=== PATIENT | female | born 1960 | race Caucasian/White ===

== ENCOUNTER 2021-01-16 21:23 | Emergency (ER) | payer MEDICARE ==
[2021-01-16] MEDS ORDERED: ceFAZolin 1 GM Vial IM ONE (21:40)
[2021-01-16] MEDS ORDERED: Bacitracin Oint 28.35 GM Tube TOP STA (21:41)
[2021-01-16] MEDS ORDERED: Ibuprofen 600 MG Tab PO ONE (21:41)
--- NOTE | 2021-01-16 22:13 | EDM.PDOC ---
ED HPI GENERAL MEDICAL PROBLEM - General Chief Complaint: Lower Extremity Injury/Pain Stated Complaint: EDEMA IN FEET Time Seen by Provider: 01/16/21 21:28 - History of Present Illness INITIAL COMMENTS - FREE TEXT/NARRATIVE: HISTORY AND PHYSICAL: History of present illness: This is a 60-year-old female who presents to the ER today for further evaluation of pain and swelling to her bilateral lower feet. Patient reports that she was seen in [place] on Tuesday and was diagnosed with an infection to her feet and was given a prescription for Keflex as well as Neosporin ointment to place on her feet. Patient reports that she was given a shot of antibiotics and discharged with a prescription for the antibiotics however secondary to circumstances outside of her control she was unable to get the prescription for Keflex and the Neosporin filled. Patient reports that she was also given a tetanus shot at that time. Patient reports that she took a train from [place] to [facility] however she got off the train and [place] today. Patient reports that she was walking around a lot for the last couple days without any socks on which resulted in multiple abrasions to her foot and swelling to her foot. Patient reports that her foot is more swollen than usual and she was unable to put her shoe on. Patient denies any recent fevers, shakes, chills, nausea, vomiting, diarrhea, dysuria, frequency, urgency. Patient denies any chest pain or shortness of breath. Patient denies any abdominal pain or discomfort. Review of systems: As per history of present illness and below otherwise all systems reviewed and negative. Past medical history: As per history of present illness and as reviewed below otherwise noncontributory. Surgical history: As per history of present illness and as reviewed below otherwise no ncontributory. Social history: No reported history of drug or alcohol abuse. Family history: As per history of present illness and as reviewed below otherwise noncontributory. Physical exam: This patient was seen and evaluated during the 2019 SARS-CoV-2 novel coronavirus pandemic period. Community viral transmission is ongoing at time of this encounter and the emergency department is operating under pandemic response procedures. Constitutional: Patient is oriented to person, place, and time. Appears well- developed and well-nourished. No distress. HEENT: Moist mucous membranes Head: Normocephalic and atraumatic Eyes: Right eye exhibits no discharge. Left eye exhibits no discharge. No scleral icterus Neck: Normal range of motion. No tracheal deviation present. Cardiovascular: Normal rate and regular rhythm. Pulmonary: Effort normal, no respiratory distress. Abdominal: No distention Musculoskeletal: Normal range of motion Neurologic: Alert and oriented to person, place and time. Skin: [place], warm and dry. Psychiatric: Normal mood and affect. Behavior is normal. Judgment and thought content normal. Nursing note and vital signs have been reviewed Patient's ER physical exam is significant for bilateral lower extremity swelling with mild erythema. Patient has no warmth. Patient with multiple superficial abrasions and blisters on the top part of her feet consistent with old and new blisters. Patient is no warmth to her legs or calves. Patient has no calf tenderness. Patient is no evidence of cellulitis, acute arterial occlusion, DVT. She has good pulses bilaterally and her DP/PT. Patient has good capillary refill. Patient sensation is intact. Diagnostics: [] Therapeutics: [] Assessment and plan: This is 60-year-old female who presents ER today secondary to lower extremity edema, pain and swelling to her feet. Patient was recently diagnosed with possible cellulitis to her bilateral feet and was started on antibiotics. Patient did not fill her prescription for antibiotics and is requesting that we give her a shot of an antibiotic and rewrite her prescriptions for her. Patient reports she had dropped off her prescription at the [facility] and [place] but never picked them up. At this time, it does not appear that the patient has a severe infection to her feet it appears that the redness is more related to irritation and old blister formation. Given patient's request, I have given her a shot of Ancef and will write her prescription for Keflex as well as ibuprofen to assist her with her pain. Patient was given the phone number for our clinics that she can follow-up if she still here in the morning as she plans to catch a train to go to [place]. Reassessment at the time of disposition demonstrates that the patient is in no acute distress. The patient has remained stable throughout the entire ED visit and is without objective evidence for acute process requiring urgent intervention or hospitalization. The patient is stable for discharge, counseling is provided as documented above, discussed symptomatic treatment and specific conditions for return. I have spoken with the patient/caregiver and discussed todays findings, in addition to providing specific details for the plan of care. Questions are answered and there is agreement with the plan. Definitive disposition and diagnosis as appropriate pending reevaluation and review of above. - Related Data Allergies Allergy/AdvReac Type Severity Reaction Status Date / Time amoxicillin Allergy Unknown Rash Verified 01/16/21 21:32 ciprofloxacin [From Cipro] Allergy Unknown Rash Verified 01/16/21 21:32 Home Meds: Home Meds Ibuprofen 600 mg PO Q6HR PRN #30 tablet 01/16/21 [Rx] cephALEXin [Keflex] 500 mg PO Q8H #30 cap 01/16/21 [Rx] Past Medical History HEENT History: Reports: None Cardiovascular History: Reports: None Respiratory History: Reports: None Gastrointestinal History: Reports: None Genitourinary History: Reports: None [employer] History: Reports: None Musculoskeletal History: Reports: None Neurological History: Reports: None Psychiatric History: Reports: None Endocrine/Metabolic History: Reports: None Hematologic History: Reports: None Immunologic History: Reports: None Oncologic (Cancer) History: Reports: None Dermatologic History: Reports: None - Infectious Disease History Infectious Disease History: Reports: Measles, Mumps, Scarlet Fever - Past Surgical History Head Surgeries/Procedures: Reports: None Social & Family History - Family History Family Medical History: No Pertinent Family History - Caffeine Use Caffeine Use: Reports: None - Recreational Drug Use Recreational Drug Use: No Review of Systems - Review of Systems Review Of Systems: See Below ED EXAM, GENERAL - Physical Exam Exam: See Below Course - Vital Signs Last Recorded V/S: Last Vital Signs Temp 98.2 F 01/16/21 22:01 Pulse 94 01/16/21 21:33 Resp 17 01/16/21 21:33 BP 121/67 01/16/21 21:33 Pulse Ox 96 01/16/21 21:33 - Orders/Labs/Meds Meds: Medications Discontinued Medications Generic Name Dose Route Start Last Admin Trade Name Freq PRN Reason Stop Dose Admin Bacitracin 1 gm 01/16/21 21:41 01/16/21 22:00 Bacitracin Oint 28.35 Gm Tube TOP 01/16/21 21:42 1 gm TID STA Administration Cefazolin Sodium 1 gm 01/16/21 21:40 01/16/21 22:00 Cefazolin 1 Gm Vial IM 01/16/21 21:41 1 gm ONETIME ONE Administration Ibuprofen 600 mg 01/16/21 21:41 01/16/21 22:01 Ibuprofen 600 Mg Tab PO 01/16/21 21:42 600 mg ONETIME ONE Administration Departure - Departure Time of Disposition: 22:13 Disposition: Home, Self-Care 01 Condition: Good Clinical Impression: Cellulitis Qualifiers: Site of cellulitis: extremity Site of cellulitis of extremity: lower extremity Laterality: unspecified laterality Qualified Code(s): L03.119 - Cellulitis of unspecified part of limb Blister of foot with infection Qualifiers: Encounter type: initial encounter Laterality: unspecified laterality Qualified Code(s): S90.829A - Blister (nonthermal), unspecified foot, initial encounter; L08.9 - Local infection of the skin and subcutaneous tissue, unspecified - Discharge Information Instructions: Cellulitis, Adult, Blisters, Adult Additional Instructions: You have been seen and evaluated in the ER today secondary to blisters to your feet that are likely infected as well swelling to your lower extremities. You have been given a dose of antibiotics intramuscularly and have been given a prescription for Keflex and ibuprofen. Please make sure you get your antibiotics filled. Please follow-up with one of our clinics if you are still in town or follow-up with one of the primary care doctors in [place] when you arrive. The following information is given to patients seen in the emergency department who are being discharged to home. This information is to outline your options for follow-up care. We provide all patients seen in our emergency department with a follow-up referral. The need for follow-up, as well as the timing and circumstances, are variable depending upon the specifics of your emergency department visit. If you don't have a primary care physician on staff, we will provide you with a referral. We always advise you to contact your personal physician following an emergency department visit to inform them of the circumstance of the visit and for follow-up with them and/or the need for any referrals to a consulting specialist. The emergency department will also refer you to a specialist when appropriate. This referral assures that you have the opportunity for follow-up care with a specialist. All of these measure are taken in an effort to provide you with optimal care, which includes your follow-up. Under all circumstances we always encourage you to contact your private physician who remains a resource for coordinating your care. When calling for follow-up care, please make the office aware that this follow-up is from your recent emergency room visit. If for any reason you are refused follow-up, please contact the [facility] Emergency Department at and asked to speak to the emergency department charge nurse. [facility] [address] [place] [id number] [address] Sepsis Event Note (ED) - Evaluation Sepsis Screening Result: No Definite Risk - Focused Exam Vital Signs: Vital Signs Temp Temp Pulse Resp BP Pulse Ox 01/16/21 22:01 98.2 F 01/16/21 21:33 97.2 F 94 17 121/67 96
== END 2021-01-16 22:37 | disposition home or self-care (01) ==
LOC: MW.ED 21:23
DX: S90.821A Blister (nonthermal), right foot, initial encounter (principal); S90.822A Blister (nonthermal), left foot, initial encounter; L03.115 Cellulitis of right lower limb; L03.116 Cellulitis of left lower limb; Z88.0 Allergy status to penicillin; X58.XXXA Exposure to other specified factors, initial encounter
CPT/HCPCS: 96372; 99283; A9270; J0690